=== PATIENT | male | born 1995 | race Caucasian/White ===

== ENCOUNTER 2022-07-15 16:58 | Emergency (ER) | payer SELFPAY ==
[2022-07-15 17:02] VITALS: BP 176/123; PULSE 59; RESP 22; TEMP 36.4; O2SAT 100; BMI 23.7
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
[2022-07-15] MEDS: LORazepam 0.5 mg Tablet PO (17:38)
--- NOTE | 2022-07-15 18:13 | PC.NURSE ---
HOLDING ON DC UNTIL INSTRUCTED BY PROVIDER RADHA.
[2022-07-15 18:36] VITALS: BP 132/77; PULSE 62; RESP 16; O2SAT 100
== END 2022-07-15 18:37 | disposition home or self-care (01) ==
PROVIDERS: Emergency Provider Nurse Practitioner Family; PCP Family Medicine
DX: S09.8XXA Other specified injuries of head, initial encounter (principal); W50.0XXA Accidental hit or strike by another person, initial encounter; Y93.75 Activity, martial arts
CPT/HCPCS: 70450; 99284